=== PATIENT | male | born 1995 | race Caucasian/White ===

== ENCOUNTER 2017-05-16 18:12 | Emergency (ER) | payer BC ==
[~2017-05-16] VITALS: Ht 190.5 cm; Wt 116.4 kg
[2017-05-16 18:22] VITALS: TEMP 37; Ht 190.5 cm; Wt 116.4 kg
--- NOTE | 2017-05-16 18:46 | EMERGENCY ROOM VISIT NOTE ---
History First contact with patient: 18:24 Chief Complaint: RASH Stated Complaint: RASH ON HAND THAT WON'T GO AWAY History of Present Illness The patient is a 22 year old male who presents to the Emergency Room via private vehicle with complaints of "rash on hand that will go away". The patient states about 3 weeks ago he developed a small erythematous rash on the dorsal aspect of his right wrist. He states it has been growing, and is itchy. He states that 2 of his roommates have ringworm, and he thought perhaps this was it, and used his friend's Naftin gel. He states he has been using this for the past few days without relief. He states that he was also outside exam at the beginning of the school year. He denies any contact with ticks. He denies any significant medical problems. He denies any fevers or chills. He denies any other rashes. Review of Systems A complete 6-point Review of Systems was discussed with the patient, with pertinent positives and negatives listed in the History of Present Illness. All remaining Review of Systems questions can be considered negative unless otherwise specified. Past Medical/Surgical History Medical Problems: (1) No active medical problems Family History No significant family history Social History Smoking Status: Current Some Day Smoker Drug Use: none Marital Status: single Housing Status: lives with roommate Occupation Status: [employer] student Current/Historical Medications Scheduled Terbinafine Hcl (Topical) (Lamisil At), 1 APPLN TD DAILY Physical Exam Vital Signs Date Time Temp Pulse Resp B/P (MAP) Pulse Ox O2 Delivery O2 Flow Rate FiO2 05/16/17 18:22 37.0 86 18 123/78 98 Room Air Physical Exam VITAL SIGNS - Vital signs and nursing notes were reviewed. Stable. GENERAL - 22-year-old male appearing her stated age who is in no acute distress. Communicates well with provider and answers questions appropriately. SKIN - there is a small erythematous 2 cm in diameter raised rash with a central clearing. HEAD - NC/AT. EYES - . Sclera anicteric. EARS - No deformities of external structures noted on gross examination bilaterally. NOSE - Midline and without cyanosis. No epistaxis or purulent drainage noted. MOUTH/OROPHARYNX - Without perioral cyanosis. EXTREMITIES - No clubbing or peripheral cyanosis.Right ventral rash as noted above. +5/5 strength noted in UE/LE bilaterally. Medical Decision & Procedures Laboratory Results 10/9/17 18:43 Red Blood Count 4.53, Mean Corpuscular Volume 91.8, Mean Corpuscular Hemoglobin 32.0, Mean Corpuscular Hemoglobin Concent 34.9, Mean Platelet Volume 10.6, Neutrophils (%) (Auto) 64.3, Lymphocytes (%) (Auto) 23.3, Monocytes (%) (Auto) 7.4, Eosinophils (%) (Auto) 4.3, Basophils (%) (Auto) 0.5, Neutrophils # (Auto) 7.80, Lymphocytes # (Auto) 2.83, Monocytes # (Auto) 0.90, Eosinophils # (Auto) 0.52, Basophils # (Auto) 0.06 05/16/17 18:43 Test 05/16/17 18:43 White Blood Count 12.14 K/uL (4.8-10.8) Red Blood Count 4.53 M/uL (4.7-6.1) Hemoglobin 14.5 g/dL (14.0-18.0) Hematocrit 41.6 % (42-52) Mean Corpuscular Volume 91.8 fL (80-100) Mean Corpuscular Hemoglobin 32.0 pg (25-34) Mean Corpuscular Hemoglobin Concent 34.9 g/dl (32-36) Platelet Count 245 K/uL (130-400) Mean Platelet Volume 10.6 fL (7.4-10.4) Neutrophils (%) (Auto) 64.3 % Lymphocytes (%) (Auto) 23.3 % Monocytes (%) (Auto) 7.4 % Eosinophils (%) (Auto) 4.3 % Basophils (%) (Auto) 0.5 % Neutrophils # (Auto) 7.80 K/uL (1.4-6.5) Lymphocytes # (Auto) 2.83 K/uL (1.2-3.4) Monocytes # (Auto) 0.90 K/uL (0.11-0.59) Eosinophils # (Auto) 0.52 K/uL (0-0.5) Basophils # (Auto) 0.06 K/uL (0-0.2) RDW Standard Deviation 43.0 fL (36.4-46.3) RDW Coefficient of Variation 12.8 % (11.5-14.5) Immature Granulocyte % (Auto) 0.2 % Immature Granulocyte # (Auto) 0.03 K/uL (0.00-0.02) Erythrocyte Sedimentation Rate 10 mm/hr (0-14) Anion Gap 6.0 mmol/L (3-11) Est Creatinine Clear Calc Drug Dose 135.1 ml/min Estimated GFR () 100.3 Estimated GFR (Non- 86.5 BUN/Creatinine Ratio 13.3 (10-20) Calcium Level 9.1 mg/dl (8.5-10.1) Total Bilirubin 0.7 mg/dl (0.2-1) Aspartate Amino Transf (AST/SGOT) 18 U/L (15-37) Alanine Aminotransferase (ALT/SGPT) 23 U/L (12-78) Alkaline Phosphatase 67 U/L (45-117) C-Reactive Protein < 0.29 mg/dl (0-0.29) Total Protein 8.0 gm/dl (6.4-8.2) Albumin 4.2 gm/dl (3.4-5.0) Globulin 3.8 gm/dl (2.5-4.0) Albumin/Globulin Ratio 1.1 (0.9-2) Lyme Disease IgG Antibody NEG (NEG) Lyme Disease IgM Antibody NEG (NEG) Medical Decision Patient was seen and evaluated as above. He presents to us today with a rash on his right dorsal wrist. The patient states that for the past few weeks he has had this red rash on his dorsal right wrist. He is concerned it could be ringworm, but is tried his friend's ringworm cream without relief. He does have 2 other close friends that have ringworm. At this time I will perform basic labs by initiating IV access. Lyme screen was negative. CBC does reveal slight leukocytosis, and mild anemia. The leukocytosis is new compared to that that he had on his previous visit, but the anemia is actually improved. His creatinine reveals 1.2, he is to have baseline labs repeated with [facility]. He is to follow-up with him later in the week for recheck, or here if worsening. After verifying this was not Lyme disease, or any other emergent process I do believe he is likely experiencing ringworm or tinea corporis. There is no lymphangitic streaking, or evidence of cellulitis. He was educated upon management, will be discharged home on Lamisil, was educated upon worrisome symptoms in which to return, and was discharged home in good condition. Although he does have a slight leukocytosis, he denies any other symptoms, therefore I believe that he should closely monitor his symptoms, and return for worsening, and follow up with his family doctor. In evaluation treatment of this patient following differential diagnoses were entertained: Tinea corporis, cellulitis, vasculitis, Lyme disease, among others. Impression Primary Impression: Tinea corporis Departure Information Dispostion Home / Self-Care Condition GOOD Prescriptions Terbinafine Hcl (Topical) (LAMISIL AT) 1 % Cre 1 APPLN TD DAILY for 7 Days, #1 TUBE Prov: Adrián Matos PA-C 05/16/17 Referrals [facility] (PCP) Patient Instructions My [facility] Additional Instructions You were seen in the emergency Department for a rash on the right wrist. Blood work at this time does not reveal any evidence of severe infection, or Lyme disease. I believe you are likely experiencing ringworm, or tinea corporis. This is best treated with a high-strength antifungal, such as Lamisil. I recommend using Lamisil, one application to your skin for the next week. Please follow-up with [facility] for recheck after one week, or return here for worsening. This is contagious, I recommend keeping the area covered. Please return with any new/concerning symptoms. Thank you for your time.
[2017-05-16 18:54] LABS: BASO % 0.5 %; BASO ABS # 0.06 K/uL (0-0.2); COMPLETE YES; EOS % 4.3 %; HEMATOCRIT 41.6 % (42-52); IG% 0.2 %; LYMPH % 23.3 %; LYMPH ABS # 2.83 K/uL (1.2-3.4); MEAN CELL VOLUME 91.8 fL (80-100); MEAN CORPUSCULAR HGB CONC 34.9 g/dl (32-36); MEAN PLATELET VOLUME 10.6 fL (7.4-10.4); MONO % 7.4 %; NEUT % 64.3 %; PLATELET COUNT 245 K/uL (130-400); RED BLOOD COUNT 4.53 M/uL (4.7-6.1); WHITE BLOOD COUNT 12.14 K/uL (4.8-10.8)
[2017-05-16 19:11] LABS: ALT/SGPT 23 U/L (12-78); BLOOD UREA NITROGEN 16 mg/dl (7-18); BUN/CREATININE RATIO 13.3 (10-20); C-REACTIVE PROTEIN < 0.29 mg/dl (0-0.29); CALCIUM 9.1 mg/dl (8.5-10.1); CARBON DIOXIDE 25 mmol/L (21-32); CHLORIDE 109 mmol/L (98-107); GLUCOSE 102 mg/dl (70-99); POTASSIUM 3.9 mmol/L (3.5-5.1); SODIUM 140 mmol/L (136-145)
[2017-05-16 19:14] LABS: ALB/GLOB RATIO 1.1 (0.9-2); ALKALINE PHOSPHATASE 67 U/L (45-117); AST/SGOT 18 U/L (15-37)
[2017-05-16 19:52] LABS: LYME DISEASE AB IGG NEG (NEG); LYME DISEASE AB IGM NEG (NEG)
[2017-05-16] MEDS ORDERED: TERBINAFINE CR 30 GM TUBE EXT STA (20:04)
[2017-05-16] MEDS ORDERED: TERB1CRE31 TD (20:21)
[2017-05-16 20:35] VITALS: BP 112/63; PULSE 61; O2SAT 98
== END 2017-05-16 20:38 | disposition home or self-care (01) ==
LOC: C.EDB 18:13 → C.EDD 20:38
DX: B35.4 Tinea corporis (principal); R21 Rash and other nonspecific skin eruption; F17.210 Nicotine dependence, cigarettes, uncomplicated